=== PATIENT | female | born 1955 | race Caucasian/White ===

== ENCOUNTER 2021-01-18 17:39 | Emergency (ER) | payer OTHER, SELFPAY ==
--- NOTE | 2021-01-18 17:46 | PC.NURSE ---
Attempting to triage pt,unable to find pt but the said she went to the bathroom. Unable to locate which bathroom at this time.
[2021-01-18 17:47] VITALS: BP 184/85; PULSE 92; RESP 16; TEMP 36.4; O2SAT 99; BMI 38.9
--- NOTE | 2021-01-18 18:11 | ED.RECABL ---
HPI - Recheck/Abnormal Lab/Rx General Chief Complaint: Recheck/Abnormal Lab/Rx Stated Complaint: not feeling well Time Seen by Provider: 01/18/21 21:09 Source: patient Mode of arrival: Ambulatory Limitations: no limitations History of Present Illness HPI narrative: 65-year-old female nonsmoker presents with her in the chief complaint of ongoing fatigue. Her symptoms seem to have started in the fall when she had COVID and in the months after patient has had ongoing trouble with fatigue and has developed pancytopenia which initially was thought perhaps related to the COVID but now, after review by Hematology-Oncology is thought to be possibly a B12 deficiency. She has undergone a week of therapy and initially felt a bit better but since she has been off the B12 no longer feels quite as well. She sees Oncology next door at the [facility] and has been notified that if she does not demonstrate improvement on the B12 than they will recommend bone marrow biopsy. She has had no runny nose or sore throat. She denies any chest pain or cough. She denies any fever or chills. She has had no nausea, vomiting or diarrhea. She denies urinary complaints such as dysuria, frequency or urgency. MD complaint: abnormal lab Initial visit (ago): week(s) Symptoms since prior visit: no new symptoms Related Data Home Medications Medication Instructions Recorded Confirmed omeprazole 20 mg PO DAILY 12/25/20 01/08/21 Allergies Allergy/AdvReac Type Severity Reaction Status Date / Time No Known Drug Allergies Allergy Verified 01/18/21 17:47 Review of Systems Constitutional Constitutional: Denies chills, Reports fatigue, Denies fever(s), Denies frequent falls, Denies lethargy and Reports weakness Eyes Eyes: Denies change in vision, Denies eye discharge, Denies irritation and Denies loss of vision ENT Ears, Nose, Mouth, and Throat: Denies change in voice, Denies dizziness, Denies neck pain, Denies sore throat and Denies throat swelling Cardiovascular Cardiovascular: Denies chest pain, Denies irregular heart rhythm, Denies lightheadedness, Denies palpitations, Denies dyspnea, Denies dyspnea on exertion and Denies orthopnea Respiratory Respiratory: Denies cough, Denies dyspnea, Denies dyspnea on exertion and Denies wheezing Gastrointestinal Gastrointestinal: Denies abdominal pain, Denies change in bowel habits, Denies diarrhea, Denies nausea and Denies vomiting Musculoskeletal Musculoskeletal: Denies neck pain and Denies numbness Integumentary/Breasts Skin/Breast: Denies pruritus, Denies erythema, Denies rash and Denies wounds Neurologic Neurologic: Denies behavioral changes, Denies confusion, Denies dizziness, Denies frequent falls, Denies loss of vision, Denies numbness and Reports weakness Psychiatric Psychiatric: Denies anxiety, Denies behavioral changes, Denies confusion, Denies depression, Denies homicidal ideation and Denies suicidal ideation Endocrine Endocrine: Reports fatigue, Denies flushing and Denies palpitations Hematologic/Lymphatic Hematologic/Lymphatic: Denies easy bruising Allergic/Immunologic Allergic/Immunologic: Denies urticaria, Denies throat swelling and Denies wheezing Patient History Medical History Obesity Surgical History H/O hand surgery Family History Father Leukemia Mother Leukemia Social History Smoking Status: Never smoker alcohol intake: never substance use type: does not use Smoking Status: Never smoker alcohol intake frequency: holidays/special occasions only Substance Use Type: does not use Exam Narrative Exam Narrative: GENERAL: [65] year old patient appears stated age. Well-nourished, well-developed patient, in mild distress. HEAD: Atraumatic. Normocephalic. EYES: Pupils equal round and reactive. Extraocular motions intact. No scleral icterus. No injection or drainage. ENT: Nose without bleeding, purulent drainage. Throat without erythema, tonsillar hypertrophy or exudate. Airway patent. NECK: Trachea midline. Non tender CARDIOVASCULAR: Regular rate and rhythm without murmurs, gallops, or rubs. RESPIRATORY: Clear to auscultation. Breath sounds equal bilaterally. No wheezes, rales, or rhonchi. GASTROINTESTINAL: Abdomen soft, non-tender, nondistended. EXTREMITIES: No edema or joint tenderness. BACK: Nontender without deformity or crepitance. No flank tenderness. NEURO: AOx3. SKIN: No rash or erythema of visible areas Initial Vital Signs Initial Vital Signs: Vital Signs Temperature 97.5 F L 05/27/21 17:47 Pulse Rate 92 H 01/18/21 17:47 Respiratory Rate 16 01/18/21 17:47 Blood Pressure 184/85 H 01/18/21 17:47 Pulse Oximetry 99 01/18/21 17:47 Course Orders Ordered: ED Orders 01/18/21 21:13 XR chest 2V Stat 01/18/21 22:00 Complete Blood Count AUTO DIFF Stat Comprehensive Metabolic Panel Stat NT-proBNP (BNP-Adult 18+) Stat Troponin & CK Cardiac Panel Stat Discontinued Medications Sodium Chloride (Normal Saline 0.9%) 1,000 mls @ 125 mls/hr IV CONT GENEVIEVE Last Admin: 01/18/21 22:10 Dose: 125 mls/hr Documented by: JAYNA Vital Signs Vital signs: Vital Signs - 8 hr 01/18/21 22:32 01/18/21 22:33 01/18/21 23:04 Pulse Rate 78 75 78 Blood Pressure 131/62 Pulse Oximetry 96 95 98 01/18/21 23:05 01/18/21 23:30 01/19/21 00:00 Pulse Rate 76 72 Blood Pressure 144/69 H 150/67 H Pulse Oximetry 99 97 93 01/19/21 00:30 Pulse Rate 76 Blood Pressure Pulse Oximetry 98 MDM - Recheck/Abnormal Lab/Rx Lab Data Result diagrams: 01/18/21 22:00 01/18/21 22:00 Labs: Lab Results 01/18/21 01/18/21 Range/Units 22:00 22:00 WBC 1.7 L* (4.5-11.0) X10^3/uL RBC 3.04 L (4.0-5.2) X10^6/uL Hgb 9.7 L (12.0-16.0) g/dL Hct 28.3 L (36-46) % MCV 93.0 (80-100) fL MCH 32.0 (26-34) PG MCHC 34.4 (30-36) % RDW 17.1 H (11.6-14.8) % Plt Count 60 L (150-400) X10^3/uL Neut % (Auto) Not Reportable Lymph % (Auto) Not Reportable [place] % (Auto) Not Reportable Eos % (Auto) Not Reportable Baso % (Auto) Not Reportable Lymph # (Auto) Not Reportable [place] # (Auto) Not Reportable Baso # (Auto) Not Reportable Total Counted 50 Seg Neutrophils % 12.0 L (38-70) % Lymphocytes % (Manual) 82.0 H (25-45) % Atypical Lymphs % 4.0 H ( - 0) % Monocytes % (Manual) 2.0 (2-11) % Neutrophils # (Manual) 204 L (3067-8723) /uL RBC Morphology See below Anisocytosis 1+ H Ovalocytes 1+ H Sodium 142 (137-145) mmol/L Potassium 3.6 (3.4-5.1) mmol/L Chloride 107 (98-107) mmol/L Carbon Dioxide 30 (22-32) mmol/L BUN 23 H (7-17) mg/dL Creatinine 0.64 (0.52-1.04) mg/dL Estimated GFR > 60.0 (>60) mL/min BUN/Creatinine Ratio 35.9 H (6-22) Glucose 96 (80-110) mg/dL Calcium 8.8 (8.4-10.2) mg/dL Total Bilirubin 0.4 (0.2-1.3) mg/dL AST 21 (14-36) IU/L ALT 22 (<35) IU/L Alkaline Phosphatase 54 (38-126) U/L Total Creatine Kinase 79 (30-135) U/L CK-MB (CK-2) TNP CK-MB (CK-2) Rel Index TNP Troponin I < 0.012 (0.01-0.034) ng/mL NT-Pro-B Natriuret Pep 120 (<125) pg/mL Total Protein 6.6 (6.3-8.2) g/dL Albumin 3.8 (3.5-5.0) g/dL Globulin 2.8 (1.7-4.1) g/dL Albumin/Globulin Ratio 1.4 (1.0-2.8) Urine Dip Bedside Urine Glucose Negative Bedside Urine Bilirubin - Negative Bedside Urine Ketone - Negative Urine Specific [place] 1.015 Bedside Urine Occult Blood - Negative Bedside Urine pH 6.0 Bedside Urine Protein - Negative Bedside Urine Urobilinogen - Negative Bedside Urine Nitrite - Negative Bedside Urine Leukocytes - Negative Esterase Imaging Data Chest x-ray: Radiologist's Impression: Gely Enamorado 65 F [address] [id number] ReportSigned Patient: Gely Enamorado MMR#: [id number]: [id number]:[id number]/Sex: 65 / FDate of Service: 01/18/21Loc: EDAccession Number: [id number] Procedure: XR chest 2V Ordering Provider: Solo Friedman D.O. PROCEDURE: XR CHEST 2V INDICATIONS: weakness, fatigue TECHNIQUE: 2 views of the chest were acquired. COMPARISON: None. FINDINGS: Surgical changes and devices: None. Lungs and pleura: Lungs are clear. No pleural effusions or pneumothorax. Mediastinum: Mediastinal contours are normal. Heart size is normal. Bones and chest wall: No suspicious bony abnormalities. Soft tissues appear unremarkable. IMPRESSION: No evidence acute pulmonary process. Dictated by: Favian Mcclure M.D. on 01/18/2021 at 21:50 Approved by: Favian Mcclure M.D. on 01/18/2021 at 21:54 MDM Narrative Medical decision making narrative: Patient has felt fatigued for quite some time. She has had no fever nor complaint of infectious type illness. She denies any bleeding. Her labs would demonstrate she continues to be pancytopenic but there are no levels below oncology is threshold for transfusion. These are largely at her baseline and nothing would suggest she would require immediate intervention. Infection considered, particularly given her absolute neutrophil count of around 200 but she demonstrates no infection. I did attempt to reach on-call Oncology to inquire about any other possible plans of action, however they did not return our call. I discussed at length with the patient return precautions and have answered questions to their apparent satisfaction Discharge Plan Departure Patient Disposition: Home Clinical Impression: Pancytopenia, Vitamin B12 deficiency Instructions: DI for Pancytopenia Activity Restrictions/Additional Instructions: *You have been diagnosed with [fatigue and pancytopenia] *What to do: *Please continue to take your regular medications as directed. [ ] New medication prescriptions sent to your pharmacy: [ ] [ ] New medication written as a paper prescription [ x] No new medications given *Please follow up with your primary care provider in 2-3 days, call for an appointment. Let them know you were seen in the Emergency Department and that we ask that you be seen in follow up. We will electronically transmit a record of today's note if your PCP is in our system *If you do not have a primary care provider please contact the [facility] Resource line at [phone]. They will ask some questions about your medical history and help get you set up with a doctor in the community. *Return to Emergency Department if you should have any new, worsening or concerning symptoms, such as [fever greater than 101 F, shaking chills, worsening pain, persistent vomiting or other bothersome symptoms] Prescriptions: No Action omeprazole 20 mg Capsule,Delayed Release(Dr/Ec) 20 mg PO DAILY RF: 0 Referrals: Flex Rehman PA-C [Primary Care Provider] - Kianna Marie MD [Physician] -
--- NOTE | 2021-01-18 21:13 | DI.RAD.S_ITS ---
PROCEDURE: XR CHEST 2V INDICATIONS: weakness, fatigue TECHNIQUE: 2 views of the chest were acquired. COMPARISON: None. FINDINGS: Surgical changes and devices: None. Lungs and pleura: Lungs are clear. No pleural effusions or pneumothorax. Mediastinum: Mediastinal contours are normal. Heart size is normal. Bones and chest wall: No suspicious bony abnormalities. Soft tissues appear unremarkable. IMPRESSION: No evidence acute pulmonary process. Dictated by: Favian Mcclure M.D. on 01/18/2021 at 21:50 Approved by: Favian Mcclure M.D. on 01/18/2021 at 21:54
[2021-01-18] MEDS: SODIUM CHLORIDE 0.9% 1,000 ML 125 ML IV (22:10)
[2021-01-18 22:18] LABS: Hematocrit 28.3 % (36-46); Hemoglobin 9.7 g/dL (12.0-16.0); Mean Corpuscular HGB Conc 34.4 % (30-36); Platelet Count 60 X10^3/uL (150-400); Red Blood Cell Count 3.04 X10^6/uL (4.0-5.2); Red Cell Distribution Width 17.1 % (11.6-14.8)
[2021-01-18 22:21] LABS: White Blood Cell Count 1.7 X10^3/uL (4.5-11.0)
[2021-01-18 22:23] LABS: Add Manual Diff / Slide Review YES; Alanine Aminotransferase 22 IU/L (<35); Albumin 3.8 g/dL (3.5-5.0); Albumin Globulin Ratio 1.4 (1.0-2.8); Alkaline Phosphatase 54 U/L (38-126); Aspartate Aminotransferase 21 IU/L (14-36); BUN Creatinine Ratio 35.9 (6-22); Bilirubin Total 0.4 mg/dL (0.2-1.3); Blood Urea Nitrogen 23 mg/dL (7-17); Calcium 8.8 mg/dL (8.4-10.2); Carbon Dioxide 30 mmol/L (22-32); Chloride 107 mmol/L (98-107); Creatine Kinase 79 U/L (30-135); Estimated Glomerular Filt Rate > 60.0 mL/min (>60); Globulin 2.8 g/dL (1.7-4.1); Glucose 96 mg/dL (80-110); HEMOLYSIS < 15 (0-50); Potassium 3.6 mmol/L (3.4-5.1); Sodium 142 mmol/L (137-145); Total Protein 6.6 g/dL (6.3-8.2)
[2021-01-18 22:32] VITALS: PULSE 78; O2SAT 96
[2021-01-18 22:32] LABS: Neutrophils Absolute Manual 204 /uL (3000-5900); Total Cells Counted 50
[2021-01-18 22:33] VITALS: BP 131/62; PULSE 75; O2SAT 95
[2021-01-18 22:34] LABS: Anisocytosis 1+; Ovalocytes 1+
[2021-01-18 22:35] LABS: NT-proBNP (BNP-Adult 18+) 120 pg/mL (<125); Troponin I < 0.012 ng/mL (0.01-0.034)
[2021-01-18 23:04] VITALS: PULSE 78; O2SAT 98
[2021-01-18 23:05] VITALS: BP 144/69; PULSE 76; O2SAT 99
[2021-01-18 23:30] VITALS: BP 150/67; PULSE 72; O2SAT 97
[2021-01-19] VITALS: O2SAT 93
[2021-01-19 00:30] VITALS: PULSE 76; O2SAT 98
--- NOTE | 2021-01-25 14:19 | PC.NURSE ---
Late Entry- RN stopped IV fluids and DC'd the IV at 0030
== END 2021-01-19 00:43 | disposition home or self-care (01) ==
PROVIDERS: Emergency Provider Emergency Medicine; PCP Physician Assistant
DX: D61.818 Other pancytopenia (principal); E53.8 Deficiency of other specified B group vitamins; Z86.16 Personal history of COVID-19
CPT/HCPCS: 36415; 71046; 80053; 81003; 82550; 83880; 84484; 85007; 85025; 96360; 96361; 99284

== ENCOUNTER → 2021-02-13 14:46 | Outpatient (CLI) | payer OTHER, SELFPAY ==
[2021-02-13 17:02] LABS: COVID19 -Nasal RAPID Negative (Negative)
== END ==
PROVIDERS: PCP Physician Assistant; Referring Provider Internal Medicine Hematology & Oncology; Visit Provider Internal Medicine Hematology & Oncology
DX: Z20.822 Contact with and (suspected) exposure to COVID-19 (principal)
CPT/HCPCS: C9803

== ENCOUNTER → 2021-02-15 10:21 | Outpatient (CLI) | payer OTHER, SELFPAY ==
[2021-02-15 10:39] VITALS: BP 125/71; PULSE 86; RESP 20; TEMP 36.9; O2SAT 98; BMI 38.9
[2021-02-15 12:30] VITALS: BP 105/50; PULSE 81; RESP 11; TEMP 36.7; O2SAT 100
[2021-02-15 12:55] VITALS: BP 105/73; PULSE 83; RESP 19; TEMP 36.6; O2SAT 99
--- NOTE | 2021-02-15 13:16 | SUR.PHASEII ---
Late entry: Pt take to room [address] Lopez with pt along with Dr. Marie and staff from the [facility]. Post proceedure pt taken to [place] 7. on monitor , turned to right side and ice placed to area. Dressing has remained c/d/i. Taking po fluids, refused offer of solid food. Spoke with Kasey at [facility] and she stated pt to stay one hour post proceedure.
[2021-02-15 13:34] VITALS: BP 136/86; PULSE 82; RESP 20; TEMP 36.6; O2SAT 99
--- NOTE | 2021-02-15 15:06 | SUR.PHASEII ---
Late entry: 1330 Pt assisted to BR, steady on feet, dressing to r hip/buttocks area c/d/i. Pt left when ready and in stable condition.
--- NOTE | 2021-02-15 15:07 | SUR.PHASEII ---
see prog note for VS.
== END | disposition home or self-care (01) ==
PROVIDERS: PCP Physician Assistant; Referring Provider Internal Medicine Hematology & Oncology; Visit Provider Internal Medicine Hematology & Oncology
DX: D61.818 Other pancytopenia (principal); D69.6 Thrombocytopenia, unspecified; D64.9 Anemia, unspecified; D72.819 Decreased white blood cell count, unspecified
CPT/HCPCS: 36415; 38222; 85007; 85025; 99000